=== PATIENT | female | born 1970 | race Caucasian/White ===

== ENCOUNTER → 2020-08-12 | Outpatient (CLI) | payer BC ==
[~2020-08-12] MED LIST: ASPIRIN CHEWABL81 MG PO; IBUPROFEN600 MG PO; IMITREX PO; NORCO 5-325 TA1 EACH PO; PRILOSEC OTC20 MG PO
== END ==
LOC: KOH-I 08:55
DX: M79.671 Pain in right foot (principal); M19.071 Primary osteoarthritis, right ankle and foot
CPT/HCPCS: 73630